=== PATIENT | male | born 1955 | race Caucasian/White ===

== ENCOUNTER 2017-04-26 06:39 | Outpatient (CLI) | payer BC ==
[~2017-04-26] VITALS: Ht 172.7 cm; Wt 73.6 kg
--- NOTE | ~2017-04-26 | HEMODYNAMI ---
PATIENT:JOSSELIN WARD MEDICAL RECORD: [id number] : 55 LOCATION:[facility] ADMISSION DATE: 04/26/17 Generatedon:04/26/201710:22 Patient name: JOSSELIN WARD Patient #: [id number] SSN: D OB: 1955 Date of study: 04/26/2017 Page: Of Hemodynamic Procedure Report Patient Data Patient Demographics Procedure consent was obtained First Name: JOSSELIN Gender: Male Last Name: ED : 1955 Patient #: [id number] Age: 61 year(s) Race: Unknown Additional ID: [id number] Contact details Address: [address] [place] [address] State: [place] [facility] [place] code: [address] Past Medical History Allergies Allergen Reaction Date Comments Reported Other allergy 04/26/2017 PCN Admission Admission Data Admission Date: 04/26/2017 Admission Time: 6:39 Procedure Procedure Types Cath Procedure Diagnostic Procedure LHC LHC w/Coronaries Miscellaneous Procedures Procedure Description Procedure Date Procedure Date: 04/26/2017 Procedure Start Time: 10:12 Procedure End Time: 10:21 Procedure Staff Name Function Julian Butcher MD Performing Physician Cristy Juarez RT Scrub Maria Dolores Spencer RN Nurse Elvie Oneill RT Monitor Indication Angina Procedure Data Cath Procedure Fluoroscopy Diagnostic fluoroscopy Total fluoroscopy Time: 1.5 time: 1.5 min min Diagnostic fluoroscopy Total fluoroscopy dose: 140 dose: 140 mGy mGy Contrast Material Contrast Material Type Amount (ml) Isovue 300 40 Entry Location Entry Primary Successful Side Size Upsize Upsize Entry Closure Zhong ccessful Closure Location (Fr) 1 (Fr) 2 (Fr) Remarks Device Remarks Radial Right 6 Fr Mechanical TR artery Short Compression Estimated blood loss: 10 ml Diagnostic catheters Device Type Used For End Catheter Placement Terumo 5Fr Daniel 110cm Procedure catheter Procedure Complications No complications Procedure Medications Medication Administration Route Dosage Oxygen NC 2 l/min Heparin Flush Bag added to field 2 bags (1000units/500ml NS) Lidocaine 2% added to field 20 Radial Cocktail added to field 1 syringe (Verapomil 2mg/Nitro 400mcg/Heparin 1500units) Fentanyl I.V. 25 mcg Versed I.V. 2 mg Radial Cocktail I.A. 1 syringe (Verapomil 2mg/Nitro 400mcg/Heparin 1500units) Hemodynamics Rest Heart Rate: 47 (bpm) Pressure Samples Time Site Value (mmHg) Purpose Heart Use Rate(bpm) 10:14 AO 110/8(29) EDP 58 10:15 AO 77/49(61) Pullback 56 10:15 AO 85/51(66) Pullback 56 Gradients Valve Time Site 1 Site 2 Mean SEP/DFP Peak To Heart Use (mmHg) (sec/min) Peak Rate (mmHg) (bpm) Other 10:15 AO AO 8 56 85/51(66) 77/49(61) Calculations Valve P-P Mean Valve Index Valve Source Name Gradient Area Flow (cm2) Other 8 8 Snapshots Pre Cath Intra NCS Post Cath Vital Signs Time Heart Resp SPO2 NIBP (mmHg) Rhythm Pain Sedation Rate (ipm) (%) Status Level (bpm) 10:00:11 50 16 100 132/76(109) NSR 0 (11) 10(A) , No pain 10:04:29 49 20 100 130/71(106) NSR 0 (11) 10(A) , No pain 10:08:35 52 17 100 115/69(105) NSR 0 (11) 9(A) , No pain 10:12:49 55 18 98 115/63(94) NSR 0 (11) 9(A) , No pain 10:17:09 54 16 97 95/50(74) NSR 0 (11) 9(A) , No pain 10:21:29 50 12 99 107/55(72) NSR 0 (11) 9(A) , No pain Medications Time Medication Route Dose Verified Delivered Reason Notes Effectiveness by by 9:55:11 Oxygen NC 2 l/min Maria Dolores Maria Dolores used for Spencer Spencer almond paste mixer RN 9:55:23 Heparin Flush added 2 bags Maria Dolores Maria Dolores used for Bag to Spencer Spencer procedure (1000units/500ml field RN RN NS) 9:55:33 Lidocaine 2% added 20ml Maria Dolores Maria Dolores used for to vial Spencer Spencer procedure field RN RN 9:55:40 Radial Cocktail added 1 Maria Dolores Maria Dolores used for (Verapomil to syringe Johanna Spencer procedure 2mg/Nitro field RN RN 400mcg/Heparin 1500units) 10:07:03 Fentanyl I.V. 25 mcg Maria Dolores Maria Dolores for sedation Johanna Spencer RN RN 10:07:09 Versed I.V. 2 mg Maria Dolores Maria Dolores for sedation Johanna Spencer RN RN 10:12:51 Radial Cocktail I.A. 1 Maria Dolores Julian for (Verapomil syringe Johanna Butcher MD vasodilation 2mg/Nitro RN 400mcg/Heparin 1500units) Procedure Log Time Note 9:35:57 Maria Dolores Spencer RN sent for patient. Start room use. 9:45:44 Diagnostic Cath Status : Elective 9:46:53 Indication : Angina 9:47:05 Time tracking: Regular hours 9:47:09 Plan of Care:Hemodynamics will remain stable., Cardiac rhythm will remain stable., Comfort level will be maintained., Respiratory function will remain adequate., Patient/ family verbilizes understanding of procedure., Procedure tolerated without complication., Recovers from procedure without complications.. 9:47:14 Patient received from Pre/Post Procedure Room to [facility] 2 Alert and oriented. Tansferred to table in Supine position. 9:47:16 Warm blankets applied, and galen hugger turned on for patient comfort. 9:47:16 Correct patient and procedure confirmed by team. 9:47:18 Signed procedure consent form obtained from patient. 9:47:19 ECG and BP/O2 sat monitors applied to patient. 9:55:11 Oxygen 2 l/min NC was administered by Maria Dolores Spencer RN; used for procedure; 9:55:23 Heparin Flush Bag (1000units/500ml NS) 2 bags added to field was administered by Maria Dolores Spencer RN; used for procedure; 9:55:33 Lidocaine 2% 20ml vial added to field was administered by Maria Dolores Spencer RN; used for procedure; 9:55:40 Radial Cocktail (Verapomil 2mg/Nitro 400mcg/Heparin 1500units) 1 syringe added to field was administered by Maria Dolores Spencer RN; used for procedure; 9:59:09 Vital chart was started 10:02:02 Baseline sample Acquired. 10:02:07 Rhythm: sinus rhythm 10:02:10 Full Disclosure recording started 10:02:22 H&P Date Dictated: 04/24/2017 Within 30 days and on chart., H&P Addendum completed by physician on day of procedure. (MUST COMPLETE FOR ALL OUTPATIENTS). 10:02:24 Pre-procedure instructions explained to patient. 10:02:27 Patient NPO since Midnight. 10:02:40 Patient allergic to Other allergyPCN 10:03:04 Is patient on blood thinner?Yes 10:03:06 ACC The patient was administered the following blood thiners within the last 24 hours: ACCPlavix 10:03:54 Patient diabetic? No. 10:03:57 Snore? Yes 10:03:59 Sleep apnea? No 10:04:05 Airway obstruction? Yes COPD 10:04:09 Dentures? No ? 10:04:12 Patient pain scale 0/10 ?. 10:04:23 IV patent on arrival in left forearm with 0.9% NaCl at [facility]. 10:05:12 Lab results completed and on chart. 10:05:17 Right Radial & Right Groin area was prepped with chlora-prep and draped in sterile fashion 10:05:18 Alarms reviewed by R. N. 10:05:18 Sharps counted by scrub and verified by R.N. 10:05:20 Physician arrived 10:05:21 --------ALL STOP TIME OUT------ 10:05:22 Final Timeout: patient, procedure, and site verified with staff and physician. All members of the team are in agreement. 10:05:29 Right Radial & Right Groin site verified by team. 10:05:35 Sedation plan: IV Moderate Sedation Versed, Fentanyl 10:06:48 Use device set Radial Dx 10:07:03 Fentanyl 25 mcg I.V. was administered by Maria Dolores Spencer RN; for sedation; 10:07:09 Versed 2 mg I.V. was administered by Maria Dolores Spencer RN; for sedation; 10:07:12 Acist Syringe opened to sterile field. 10:07:12 Medline Cath Pack opened to sterile field. 10:07:13 Bag Decanter opened to sterile field. 10:07:13 Terumo 6Fr Slender Glidesheath opened to sterile field. 10:07:14 St Jarret 260cm J .035 wire opened to sterile field. 10:07:14 Acist Hand Control opened to sterile field. 10:07:15 Acist Manifold opened to sterile field. 10:07:15 Tegaderm 4 x 4 opened to sterile field. 10:07:16 MBrace Wrist Support opened to sterile field. 10:07:17 Micropuncture VSI 4FR kit opened to sterile field. 10:12:16 Procedure started. 10:12:26 Local anesthetic to right radial artery with Lidocaine 2% by Julian Butcher MD.INITIAL ACCESS ONLY 10:12:35 A 6 Fr Short sheath was inserted into the Right Radial artery 10:12:51 Radial Cocktail (Verapomil 2mg/Nitro 400mcg/Heparin 1500units) 1 syringe I.A. was administered by Julian Butcher MD; for vasodilation; 10:13:11 Zero performed for pressure channel P1 10:13:17 Zero performed for pressure channel P1 10:14:07 A Peach [employer] Lilyo 5Fr Daniel 110cm catheter was advanced over the wire and used for Procedure. 10:15:35 EF : 65 % 10:15:37 LCA angiography performed. 10:18:00 RCA angiography performed. 10:18:06 Catheter removed. 10:19:03 Sheath removed intact; hemostasis achieved with Mechanical Compression to the Right Radial artery. 10:19:19 Procedure ended.(Physican Out) 10:19:50 Fluoroscopy time 01.50 minutes. 10:19:55 Flurop Dose total: 140 10:19:55 Fluoroscopy dose: 140 mGy 10:20:01 Contrast amount:Isovue 300 40ml. 10:20:02 Sharps counted by scrub and verified by R.N. 10:20:06 TR band inflated with 15cc of air. 10:20:08 Insertion/operative site no bleeding no hematoma. 10:20:16 Post right radial artery:stable 10:20:18 Post Procedure Pulses reassessed and unchanged 10:20:23 Post-procedure physical assessment completed. ASA score P 2 - A patient with mild systemic disease as per Julian Butcher MD. 10:20:28 Post procedure rhythm: unchanged. 10:20:31 Estimated blood loss: 10 ml 10:20:33 Post procedure instruction explained to patient.Patient verbalizes understanding. 10:20:44 Procedure and supply charges have been captured, reviewed, submitted and are correct. 10:20:56 Terumo TR Band Standard opened to sterile field. 10:21:20 Procedure Complication : No complications 10:21:26 Vital chart was stopped 10:21:45 See physician's report for complete and final results. 10:21:49 Report given to Pre/Post Procedure Room. 10:21:56 Patient transfered to Pre/Post Procedure Room with Stretcher. 10:21:58 Procedure ended. 10:21:58 Full Disclosure recording stopped 10:22:09 End room use (Document Last) Device Usage Item Name Manufacture Quantity Catalog Hospital Part Current Minim al Lot# / Number Charge Number Stock Stock Serial# Code Acist Syringe Acist 1 45313 748191 [id number] 20 [employer] Medline Cath Cardinal 1 [id number] 101496 27951 365653 5 Pack Health Bag Decanter Microtek 1 2002S 618461 73230 537409 5 Medical Inc. Terumo 6Fr Terumo 1 [id number] 257455 985496 989685 [address] Jarret 260[address] St Jarret 1 269006 467863 837542 471686 30 J .035 wire Acist Hand Acist 1 44599 664135 882073 880353 5 Control [employer] Inc Acist Acist 1 56001 617572 945182 302591 5 Manifold [employer] Inc Tegaderm 4 x 3M 1 [id number] 434804 948278 576762 5 4 MBrace Wrist Advanced 1 140-0250-00 589821 95825 610696 5 Support V[employer] Micropuncture VSI VASCULAR 1 7266V 200152 766676 5 VSI 4FR kit SOLUTIONS Terumo 5Fr Terumo 1 04-3136 996329 048428 877015 5 Daniel 110cm catheter Terumo TR Terumo 1 [id number] 344034 759544 939335 40 Band Standard Signature Audit Marquez Stage Time Signature Unsigned Intra-Procedure 04/26/2017 Elvie Oneill 10:22:42 AM RT(R) Signatures Monitor : Elvie Oneill Signature : RT Date : Time : [place] [place] [address]
[2017-04-26] MEDS ORDERED: PREVACID30 MG PO (06:52)
[2017-04-26] MEDS ORDERED: ZOCOR20 MG PO (06:53)
[2017-04-26] MEDS ORDERED: MOBIC7.5 MG PO (06:53)
[2017-04-26] MEDS ORDERED: ED-SPAZ0.125 MG PO (06:54)
[2017-04-26] MEDS ORDERED: REGLAN10 MG PO (06:55)
[2017-04-26] MEDS ORDERED: BENTYL 20 MG TA20 MG PO (06:57)
[2017-04-26] MEDS ORDERED: TYLENOL W/CODEI1 TAB PO (06:57)
[2017-04-26] MEDS ORDERED: XANAX0.5 MG PO (06:57)
[2017-04-26] MEDS ORDERED: PROVENTIL HFA6.7 GM INH (06:58)
[2017-04-26] MEDS ORDERED: SKELAXIN800 MG PO (06:58)
[2017-04-26] MEDS ORDERED: FISH OIL 1,0001 CA1 PO (06:59)
[2017-04-26] MEDS ORDERED: MELATONIN 3 MG1 TAB PO (06:59)
[2017-04-26] MEDS ORDERED: GAS-X180 MG PO (06:59)
[2017-04-26] MEDS ORDERED: FLINTSTONE1 TAB.CHEW PO (06:59)
[2017-04-26] MEDS ORDERED: CO Q-1030 MG PO (07:00)
[2017-04-26] MEDS ORDERED: SAW PALMETTO450 MG PO (07:00)
[2017-04-26] MEDS ORDERED: COLACE100 MG PO (07:01)
[2017-04-26 07:11] VITALS: BP 134/65; Ht 172.7 cm; Wt 73.6 kg
[2017-04-26 07:34] LABS: CALC OSMOLALITY 282 mosm/kg (275-300); CALCIUM 9.4 mg/dL (8.5-10.1); CARBON DIOXIDE 28.1 mmol/L (21.0-32.0); CHLORIDE - SERUM 103 mmol/L (98-107); GLUCOSE 120 mg/dL (74-106); POTASSIUM - SERUM 4.2 mmol/L (3.5-5.1); SODIUM 141 mmol/L (136-145); UREA NITROGEN 14 mg/dL (7-18); eGFR NON AFRICAN AMERICAN 81 mL/min (90-120)
[2017-04-26 07:37] LABS: BASOPHILS 0.2 % (0-2); EOSINOPHILS 0 % (0-7); HEMATOCRIT 46.3 % (42.0-54.0); HEMOGLOBIN 16.3 g/dL (13.5-17.5); IMMATURE GRANULOCYTES 0.2 % (0-5); LYMPHOCYTES 15.1 % (15-50); MCH 34.3 pg (26.0-34.0); MCHC 35.2 g/dL (31.0-37.0); MCV 97.5 fL (80.0-100.0); MEAN PLATELET VOLUME 11.6 fL (7.4-10.4); MONOCYTES 4.3 % (2-11); NEUTROPHILS 80.2 % (40-80); PLATELET COUNT 156 10x3/uL (130-400); RBC 4.75 10x6/uL (4.20-6.10); RDW 13.1 % (11.5-14.5); WBC 6.5 10x3/uL (4.8-10.8)
--- NOTE | 2017-04-26 10:48 | NUR ---
1030 PT DENIES ANY C/O CHEST PAIN OR NAUSEA. TR BAND IS CDI, NO BLEEDING OR HEMATOMA NOTED AT SITE. FINGERS WARM, CAP REFILL IS BRISK. WRIST IMMOBILIZER IN PLACE. RR IS EVEN AND UNLABORED. SINUS BRADYCARDIA WITH RATE OF 50. FAMILY AT BEDSIDE. CALL LIGHT IN REACH. 1045 PO FLUIDS SERVED. PT DENIES ANY C/O. NO BLEEDING OR HEMATOMA NOTED AT CATH ENTRY SITE. FINGER WARM, CAP REFILL IS BRISK.
--- NOTE | 2017-04-26 11:07 | NUR ---
1100 DENIES ANY C/O. TR BAND CDI, NO BLEEDING OR HEMATOMA NOTED. CAP REFILL IS BRISK. FINGERS WARM. AT BEDSIDE, CALL LIGHT IN REACH.
--- NOTE | 2017-04-26 11:24 | NUR ---
1115 JAMIE PO FLUIDS AND SANDWICH WITH NO C/O NAUSEA. TR BAND CDI, WRIST IMMOBILIZER IN PLACE. CAP REFILL TO FINGERS IS BRISK. AT BEDSIDE, CALL LIGHT IN REACH.
--- NOTE | 2017-04-26 12:27 | NUR ---
1145 TR BAND DEFLATION STARTED WITH 3 CC OF AIR REMOVED AND NO BLEEDING NOTED. PT DENIES ANY C/O AT THIS TIME. AT BEDSIDE. CALL LIGHT IS IN REACH.
--- NOTE | 2017-04-26 12:30 | NUR ---
1230 TR BAND DEFLATION COMPLETE, NO BLEEDING OR HEMATOMA NOTED AT SITE. 2X2 AND TEGADERM APPLIED. IV DC'D WITH CATH INTACT. PT DRESSING FOR DC TO HOME.
--- NOTE | 2017-04-26 14:07 | NUR ---
1300 DC INSTRUCTIONS REVIEWED WITH PT AND WHO VERBALIZE UNDERSTANDING. DRESSING TO RIGHT WRIST REMAINS CDI, NO BLEEDING OR HEMATOMA NOTED. PT DENIES ANY C/O. [PT ESCORTED TO PRIVATE AUTO VIA WC BY STAFF WITH FAMILY DRIVING HIM HOME.
== END 2017-04-26 13:00 | disposition home or self-care (01) ==
LOC: D.CATH 06:39
PROVIDERS: Internal Medicine Cardiovascular Disease
DX: R07.9 Chest pain, unspecified (principal); R94.30 Abnormal result of cardiovascular function study, unspecified; E78.5 Hyperlipidemia, unspecified; F17.200 Nicotine dependence, unspecified, uncomplicated; Z01.812 Encounter for preprocedural laboratory examination

== ENCOUNTER → 2017-06-28 16:50 | Outpatient (CLI) | payer BC ==
[2017-04-26 07:11] VITALS: BMI 24.6
[~2017-06-28 16:50] MED LIST: BENTYL 20 MG TA20 MG PO; CO Q-1030 MG PO; COLACE100 MG PO; ED-SPAZ0.125 MG PO; FISH OIL 1,0001 CA1 PO; FLINTSTONE1 TAB.CHEW PO; GAS-X180 MG PO; MELATONIN 3 MG1 TAB PO; MOBIC7.5 MG PO; PREVACID30 MG PO; PROVENTIL HFA6.7 GM INH; REGLAN10 MG PO; SAW PALMETTO450 MG PO; SKELAXIN800 MG PO; TYLENOL W/CODEI1 TAB PO; XANAX0.5 MG PO; ZOCOR20 MG PO
[2017-06-28 18:03] LABS: CHOL - HDL RATIO 3.8 ratio (2.3-4.9); LDL-HDL RATIO 2.4 ratio (1.5-3.5)
== END | disposition home or self-care (01) ==
LOC: D.LABREF 16:50
PROVIDERS: Internal Medicine Cardiovascular Disease
DX: E78.5 Hyperlipidemia, unspecified (principal)

== ENCOUNTER → 2017-10-02 13:04 | Outpatient (CLI) | payer BC ==
[2017-04-26 07:11] VITALS: BMI 24.6
[2017-10-02 14:10] LABS: CHOL - HDL RATIO 1.9 ratio (2.3-4.9); LDL-HDL RATIO 0.5 ratio (1.5-3.5)
== END | disposition home or self-care (01) ==
LOC: D.LABREF 13:04
PROVIDERS: Internal Medicine Cardiovascular Disease
DX: E78.5 Hyperlipidemia, unspecified (principal)

== ENCOUNTER → 2018-05-06 16:50 | Outpatient (CLI) | payer BC ==
[2017-04-26 07:11] VITALS: BMI 24.6
[2018-05-06 18:24] LABS: BASOPHILS 0.7 % (0-2); EOSINOPHILS 0.2 % (0-7); HEMATOCRIT 43.2 % (42.0-54.0); HEMOGLOBIN 15.1 g/dL (13.5-17.5); LYMPHOCYTES 26.4 % (15-50); MCH 33.9 pg (26.0-34.0); MCV 96.9 fL (80.0-100.0); MEAN PLATELET VOLUME 11.3 fL (7.4-10.4); NEUTROPHILS 61.7 % (40-80); RBC 4.46 10x6/uL (4.20-6.10); RDW 13.3 % (11.5-14.5); WBC 4.2 10x3/uL (4.8-10.8)
[2018-05-06 18:27] LABS: PLATELET COUNT 273 10x3/uL (130-400)
[2018-05-06 19:11] LABS: CHOL - HDL RATIO 2.3 ratio (2.3-4.9)
== END | disposition home or self-care (01) ==
LOC: D.LABREF 16:50
PROVIDERS: Internal Medicine Cardiovascular Disease
DX: I25.10 Atherosclerotic heart disease of native coronary artery without angina pectoris (principal); I10 Essential (primary) hypertension; E78.00 Pure hypercholesterolemia, unspecified

== ENCOUNTER → 2018-09-03 16:59 | Outpatient (CLI) | payer BC ==
[2017-04-26 07:11] VITALS: BMI 24.6
[2018-09-03 17:28] LABS: CHOL - HDL RATIO 2.8 ratio (2.3-4.9); LDL-HDL RATIO 1.3 ratio (1.5-3.5)
== END | disposition home or self-care (01) ==
LOC: D.LABREF 16:59
PROVIDERS: Internal Medicine Interventional Cardiology
DX: E78.5 Hyperlipidemia, unspecified (principal)

== ENCOUNTER → 2020-10-14 18:03 | Outpatient (CLI) | payer SELFPAY ==
[2017-04-26 07:11] VITALS: BMI 24.6
[2020-10-14 19:29] LABS: CHOL - HDL RATIO 2.5 ratio (2.3-4.9); LDL-HDL RATIO 1.2 ratio (1.5-3.5)
== END | disposition home or self-care (01) ==
LOC: D.LABREF 18:03
PROVIDERS: ATTEND Nurse Practitioner Adult Health
DX: I25.10 Atherosclerotic heart disease of native coronary artery without angina pectoris (principal); E78.5 Hyperlipidemia, unspecified